=== PATIENT | male | born 1940 ===

== ENCOUNTER 2023-01-03 10:41 | Outpatient (CLI) | payer MEDICARE, SELFPAY ==
[2023-01-03 11:27] LABS: Albumin Level 3.8 g/dL (3.5-5.1); Blood Urea Nitrogen 31 mg/dL (9-20); Carbon Dioxide > 40 mmol/L (22-30); Chloride 96 mmol/L (98-107); Estimated Glomerular Filt Rate 39; Glucose 143 mg/dL (65-110); Phosphorus 3.3 mg/dL (2.5-4.5); Potassium 4.2 mmol/L (3.4-5.0); Sodium 140 mmol/L (137-145)
[2023-01-03 11:33] LABS: Complement C3 107 mg/dL (88-165)
[2023-01-03 11:37] LABS: Creatinine Urine 68.3 mg/dL; Total Protein Urine Random 156 mg/dL; Ur Ttl Prot Creatinine Ratio 2.28 mg/mg (0-0.20)
[2023-01-07 14:43] LABS: Albumin 3.4 g/dL (3.8-4.8); Alpha 1 Globulin 0.3 g/dL (0.2-0.3); Beta 1 Globulin 0.4 g/dL (0.4-0.6); Gamma Globulin 0.7 g/dL (0.8-1.7); Protein, Total 6.1 g/dL (6.1-8.1)
[2023-01-08 03:22] LABS: Anti Glomerular Basement Memb <1.0 AI (<1.0)
[2023-01-08 21:43] LABS: ANCA Screen Negative (Negative)
[2023-01-09 12:51] LABS: Creatinine, Random Urine 71 mg/dL (20-320); Total Protein/Creatinine Ratio 1592 mg/g creat (25-148)
[2023-01-09 14:22] LABS: Anti Nuclear Antibody Titer 1:40 (Negative)
== END 2023-01-03 10:42 | disposition home or self-care (01) ==
PROVIDERS: PCP Nurse Practitioner Family; Visit Provider Internal Medicine Nephrology
DX: I12.9 Hypertensive chronic kidney disease with stage 1 through stage 4 chronic kidney disease, or unspecified chronic kidney disease (principal); E11.22 Type 2 diabetes mellitus with diabetic chronic kidney disease; N18.31 Chronic kidney disease, stage 3a
CPT/HCPCS: 36415; 80069; 82570; 83520; 84155; 84156; 84165; 84166; 86036; 86038; 86039; 86160; 86225